=== PATIENT | female | born 1990 | race Two or more races ===

== ENCOUNTER 2016-09-23 13:07 | Emergency (ER) | payer MEDICAID ==
[~2016-09-23] VITALS: Ht 160 cm; Wt 53.5 kg
--- NOTE | 2016-09-23 13:19 | NUR ---
Presents self to ed dt abdominal cramps and vaginal bleeding since this am. Per patient she is 3 weeks preganant. used 0 pads today. vss
[2016-09-23 13:37] LABS: BASOPHILS # (AUTO) 0.4 /CMM (0.0-0.2); BASOPHILS % (AUTO) 3.6 % (0.0-2.0); EOSINOPHILS # (AUTO) 0.1 /CMM (0.0-0.7); EOSINOPHILS % (AUTO) 0.5 % (0.0-6.0); HEMATOCRIT 39 % (33-45); LYMPHOCYTES # (AUTO) 2.1 /CMM (0.8-4.8); LYMPHOCYTES % (AUTO) 17.9 % (20.0-44.0); MEAN CORPUSCULAR HEMOGLOBIN 29 PG (26.0-33.0); MEAN CORPUSCULAR HGB CONC 33 g/dl (31.0-36.0); MEAN CORPUSCULAR VOLUME 86 fL (82-100); MONOCYTES # (AUTO) 0.6 /CMM (0.1-1.30); MONOCYTES % (AUTO) 4.8 % (2.0-12.0); NEUTROPHILS # (AUTO) 8.6 /CMM (1.8-8.9); NEUTROPHILS % (AUTO) 73.2 % (43.0-81.0); PLATELET COUNT (AUTO) 283 /CMM (150-450); RDW COEFFICIENT OF VARIATION 12.3 (11.5-15.0); RED BLOOD CELL COUNT(AUTO) 4.57 MIL/uL (4.0-5.2); WHITE BLOOD COUNT (AUTO) 11.8 K/uL (4.3-11.0)
[2016-09-23 13:46] LABS: CALCIUM, SERUM 8.7 mg/dL (8.5-10.1); CREATININE 0.9 mg/dL (0.6-1.3); POTASSIUM 4.2 mmol/L (3.5-5.1)
[2016-09-23 15:33] LABS: APPEARANCE,URINE CLOUDY (CLEAR); BILIRUBIN,URINE NEGATIVE (NEGATIVE); BLOOD, URINE 3+ Ery/uL (NEGATIVE); COLOR,URINE RED (YELLOW); KETONES,URINE 1+ (NEGATIVE); LEUKOCYTE ESTERASE ,URINE 2+ (NEGATIVE); NITRITE, URINE POSITIVE (NEGATIVE); PH,URINE 7.5 (5.0-8.0); PROTEIN,URINE 3+ mg/dl (NEGATIVE); UGLUCOSE TRACE mg/dL (NEGATIVE)
[2016-09-23 15:36] LABS: BACTERIA,URINE Rare /HPF (None Seen); RBC,URINE TOO NUMEROUS TO COUN /HPF (0-2)
[2016-09-23 15:37] LABS: SQUAMOUS EPITHELIAL CELL,UR Moderate /HPF (None Seen)
[2016-09-23 15:51] VITALS: BP 113/72
--- NOTE | 2016-09-23 15:51 | NUR ---
Patient discharged to home in stable condition. Written and verbal after care instructions given. Patient verbalizes understanding of instruction.
== END 2016-09-23 15:52 | disposition home or self-care (01) ==
LOC: ER 13:09
DX: O20.0 Threatened abortion (principal); Z3A.01 Less than 8 weeks gestation of pregnancy
CPT/HCPCS: 36415; 76856; 80048; 81001; 84702; 85025; 87086; 99285; A4606; Z7610; 81000-TC

== ENCOUNTER 2016-09-29 10:26 | Emergency (ER) | payer SELFPAY ==
[~2016-09-29] VITALS: Ht 160 cm; Wt 53.5 kg
--- NOTE | 2016-09-29 10:35 | NUR ---
PRESENTS SELF TO ED TO FOLLOW UP IF SHE;S STILL . PATIENT WAS IN ED FEW DAYS AGO FOR POSSIBLE MISCARRIAGED. STOPPED BLEEDING 2 DAYS AGO. VSS. NO NAUSEA AND VOMITTING
[2016-09-29 11:13] VITALS: BP 117/69
== END 2016-09-29 11:14 | disposition home or self-care (01) ==
LOC: ER 10:29
DX: Z32.02 Encounter for pregnancy test, result negative (principal)
CPT/HCPCS: 36415; 84702-TC; 84703-TC; A4606; Z7610

== ENCOUNTER 2016-12-07 17:36 | Emergency (ER) | payer SELFPAY ==
[~2016-12-07] VITALS: Ht 160 cm; Wt 53.5 kg
--- NOTE | 2016-12-07 17:45 | NUR ---
AAOX3, CAME TO ER C/O R FLANK PAIN X 4 DAYS, SKIN IS WARM AND DRY. RESP IS EVEN AND UNLABORED WITH EVEN AND UNLABORED WITH NAD NOTED. DR HAZEL AT BS FOR EVAL.
[2016-12-07 18:09] LABS: APPEARANCE,URINE CLEAR (CLEAR); BILIRUBIN,URINE NEGATIVE (NEGATIVE); BLOOD, URINE TRACE-INTA Ery/uL (NEGATIVE); COLOR,URINE YELLOW (YELLOW); KETONES,URINE NEGATIVE (NEGATIVE); LEUKOCYTE ESTERASE ,URINE 1+ (NEGATIVE); NITRITE, URINE NEGATIVE (NEGATIVE); PH,URINE 7.5 (5.0-8.0); PROTEIN,URINE NEGATIVE (NEGATIVE); UGLUCOSE NEGATIVE (NEGATIVE); UROBILINOGEN,URINE 0.2 EU/dL (0.2)
[2016-12-07 18:15] LABS: BACTERIA,URINE 1+ /HPF (None Seen); SQUAMOUS EPITHELIAL CELL,UR 0-2 /HPF (None Seen)
[2016-12-07 18:49] VITALS: BP 120/76
--- NOTE | 2016-12-07 18:49 | NUR ---
Patient discharged to home in stable condition. Written and verbal after care instructions given. Patient verbalizes understanding of instruction.
== END 2016-12-07 18:49 | disposition home or self-care (01) ==
LOC: ER 17:37
DX: N39.0 Urinary tract infection, site not specified (principal)
CPT/HCPCS: 81001; 84703; 87086; 99284; A4606; Z7610; 81000-TC